=== PATIENT | female | born 2000 ===

== ENCOUNTER 2021-11-01 15:34 | Emergency (ER) | payer MEDICAID, OTHER ==
[~2021-11-01] VITALS: Ht 160 cm; Wt 55.2 kg
[2021-11-01] MEDS ORDERED: ONDANSETRON ODT 4 MG TAB PO ONE (20:15)
[2021-11-01] MEDS ORDERED: HYDROcodone-ACET 5/325MG TAB PO ONE (20:15)
[2021-11-01] MEDS ORDERED: ONDA-144 PO (20:57)
[2021-11-01] MEDS ORDERED: HYDR-4902 PO (20:57)
[2021-11-01 21:27] VITALS: BP 109/74
== END 2021-11-01 21:31 | disposition home or self-care (01) ==
LOC: ER 15:34
DX: S50.311A Abrasion of right elbow, initial encounter (principal); Z79.899 Other long term (current) drug therapy; Z88.0 Allergy status to penicillin; W10.9XXA Fall (on) (from) unspecified stairs and steps, initial encounter; Y93.89 Activity, other specified; Y92.89 Other specified places as the place of occurrence of the external cause; Y99.8 Other external cause status
CPT/HCPCS: 29105; 73070; 99283; Q0162